=== PATIENT | male | born 1980 | race Caucasian/White ===

== ENCOUNTER 2025-04-02 20:42 | Emergency (ER) | payer OTHER, SELFPAY ==
[2025-04-02 20:50] VITALS: BP 142/97; PULSE 76; RESP 16; TEMP 36.4; O2SAT 96; BMI 21.9
--- NOTE | 2025-04-02 22:01 | ED.GENADULT ---
HPI - General Adult General Chief complaint: Eye Problems Stated complaint: Wood stuck in right eye Time Seen by Provider: 04/02/25 22:01 Related Data Allergies Allergy/AdvReac Type Severity Reaction Status Date / Time No Known Allergies Allergy Verified 04/02/25 20:53 [facility] Social History Social History Advance Directives: No Advance Directives Information Provided: No Do you have a plan to hurt others: No Plan Physical Exam ED Vital Signs: Vital Signs - 24 hr 04/02/25 20:50 Temperature 97.5 F Pulse Rate 76 Respiratory Rate 16 Blood Pressure 142/97 H Pulse Oximetry 96 Oxygen Delivery Method Room Air BMI result Body Mass Index 21.9 Course Reevaluation(s) Reevaluation #1: The patient began to verbally assault staff, the patient has been here for an hour, he has yet to be seen, he is in 1 of the exam rooms. I attempted twice to deescalate his behavior, I attempted to explain to the patient that we are extremely busy and that he will be seen soon. The patient proceeded to verbally assault myself as well as other staff members, he aggressively approached me, posturing as if he was going to strike me, I then walked away to get support from security. The patient was safely escorted out of the emergency department. Time: 22:01 Discharge Plan Discharge Clinical Impression: Acute right eye pain Patient Disposition: Left Without Being Seen
--- NOTE | 2025-04-02 22:05 | PC.NURSE ---
while walking toward exit making inflammatory and explicit remarks toward staff, patient approached this nurse in a threatening manner, agitated, yelling. this nurse asked patient if we could speak inside his room. patient started to roll up sleeves and state yea...we will 'talk' about it in the room. EMMY Monsivais then began to deescalate patient as he turned walking back into room. security called, patient left department without being seen ambulating steadily with family member, EMMY espinal
--- NOTE | 2025-04-02 22:06 | PC.NURSE ---
pt sister approached nurses station, stated to this nurse my brother has a piece of wood in his eye and he is going to go blind if someone doesn't see him. EMMY Swanson and myself advised family that we are seeing patients as quickly as possible. This was reiterated by primary RN . Pt sister then returned to exam room. After about 3 minutes, pt stumbled out of exam room and attempted to enter nurses station, pt was demanding to be seen by a provider. Pt began to verbally assault staff, the patient has been here for an hour (pt was brought to exam room at 2115) he has yet to be seen. EMMY Swanson attempted twice to deescalate his behavior, she explained that we are extremely busy and that he will be seen soon. The patient proceeded to verbally assault EMMY Swanson, calling myself and staff retarded scott Security called for assitance. Pt escorted out of the emergency department.
== END 2025-04-02 22:19 | disposition left against medical advice (07) ==
PROVIDERS: Emergency Provider Emergency Medicine
DX: H57.11 Ocular pain, right eye (principal); Z53.21 Procedure and treatment not carried out due to patient leaving prior to being seen by health care provider
CPT/HCPCS: 99281